=== PATIENT | male | born 1985 | race Caucasian/White ===

== ENCOUNTER 2018-01-22 21:59 | Emergency (ER) | payer SELFPAY ==
[2018-01-22 22:00] VITALS: BP 135/83; PULSE 97; RESP 18; TEMP 35.8; O2SAT 96; BMI 28.5
--- NOTE | 2018-01-22 22:24 | ED.VISSUMM ---
- ER Visit Summary Date of Service: 01/22/18 Chief Complaint: Right ear pain with bloody drainage History of Present Illness: The patient is a 32 M who presents with acute right ear pain with bloody drainage that started yesterday. He denies headache. He does report mild nasal congestion. Denies sore throat. He denies cough. He does report vertigo. He also reports decreased hearing on the right. He denies any other symptoms please read written note Physical Examination: Vital signs remarkable blood pressure 135/83. Pupils equal round reactive. Extra muscles are intact. Sclerae anicteric and conjunctivae is noninjected. There is no amount of cerumen left auditory canal. The portion of the TM that was seen is normal. The right TM is perforated with bloody purulent drainage noted in the external auditory canal. There is no discomfort portion of the tragus or pulling on the auricle. There is no preauricular lymphadenopathy. Neck is supple. Heart is regular without murmur, gallop or rub. S1 and S2 are normal. Lungs are clear to auscultation with good movement of air bilaterally. Test Results: None are indicated Emergency Department Course and Treatment: Patient was treated with azithromycin since he has significant allergy to amoxicillin. Treatment Plan: Prescription for azithromycin, appropriate home-going instructions. He was told to keep water out of his ear. Suggestion was made to apply Vaseline to cottonball and insert an ear prior to showering. Disposition: Discharged to home Impression: Acute right ear pain secondary to otitis media with perforation This note was generated with [employer] dictation software. It may contain incorrect words, spelling, and punctuation that were not noted in review of the chart prior to signing ED Disposition - Plan for ED Patient: Disposition: Home or Assisted Living Chief Complaint: Ear Problem Instructions: ED Rupture Eardrum Infec Prescriptions: Azithromycin [Zithromax] 500 mg PO DAILY #5 tab Referrals: Nichole Yi MD [Primary Care Provider] - 3-5 Days if not improving
[2018-01-22] MEDS: Azithromycin 250 MG Tablet 500 MG PO (22:46)
== END 2018-01-22 22:55 | disposition home or self-care (01) ==
PROVIDERS: Emergency Provider Emergency Medicine; Family Provider Internal Medicine; PCP Internal Medicine
DX: H66.91 Otitis media, unspecified, right ear (principal); H72.91 Unspecified perforation of tympanic membrane, right ear; H92.01 Otalgia, right ear
CPT/HCPCS: 99283

== ENCOUNTER 2018-02-07 21:10 | Emergency (ER) | payer SELFPAY ==
[2018-02-07 21:12] VITALS: BP 114/69; PULSE 69; RESP 17; TEMP 37.1; O2SAT 97; BMI 26.6
== END 2018-02-07 23:50 | disposition left against medical advice (07) ==
LOC: ED 23:09
PROVIDERS: Emergency Provider Emergency Medicine; Family Provider Internal Medicine; PCP Internal Medicine
DX: R51 Headache (principal)

== ENCOUNTER 2018-02-26 13:35 | Emergency (ER) | payer SELFPAY ==
[2018-02-26 13:35] VITALS: BP 122/83; PULSE 84; RESP 18; TEMP 36.7; O2SAT 98; BMI 26.6
[2018-02-26 14:10] VITALS: BP 120/70; PULSE 80; RESP 14; O2SAT 99
[2018-02-26] MEDS: Carbamide Peroxide 15 ML Bottle 5 DRP OTIC (14:12)
--- NOTE | 2018-02-26 14:59 | ED.RN ---
Called into room to help with ear irrigation. Mixed sterile normal saline with hydrogen peroxide 50/50 and irrigated both ears. Small amount of cerumen from each ear. Reapplied debrox and will return in approx 20-30 min. PT tolerated the procedure well, c/o dizziness which pt was educated.
--- NOTE | 2018-02-26 16:28 | ED.VISSUMM ---
- ER Visit Summary Date of Service: 02/26/18 Chief Complaint: The patient is a 32 M bilateral ear pain and unable to hear right side History of Present Illness: Presents with inability to hear on the right side. He combines of bilateral ear pain. He states he used a Q-tip without results. He has no other complaints. Physical Examination: Vital signs unremarkable. Patient has bilateral cerumen impaction. There is no discomfort with pulling on the auricle pushing on the tragus. There is no erythema. There is no tenderness of the mastoid. There is no preauricular lymphadenopathy. The remainder of the HEENT exam is unremarkable. Test Results: None Emergency Department Course and Treatment: Debrox both ears and irrigation by nurse Treatment Plan: None Disposition: Discharged to home Impression: Bilateral cerumen impaction with decreased hearing This note was generated with [employer] dictation software. It may contain incorrect words, spelling, and punctuation that were not noted in review of the chart prior to signing ED Disposition - Plan for ED Patient: Disposition: Home or Assisted Living Chief Complaint: Ear Problem Instructions: ED Cerumen Impaction Treated Referrals: Nichole Yi MD [Primary Care Provider] - As Needed
--- NOTE | 2018-02-26 16:31 | ED.DCSUM_ITS ---
- ER Visit Summary Date of Service: 02/26/18 Chief Complaint: The patient is a 32 M bilateral ear pain and unable to hear right side History of Present Illness: Presents with inability to hear on the right side. He combines of bilateral ear pain. He states he used a Q-tip without results. He has no other complaints. Physical Examination: Vital signs unremarkable. Patient has bilateral cerumen impaction. There is no discomfort with pulling on the auricle pushing on the tragus. There is no erythema. There is no tenderness of the mastoid. There is no preauricular lymphadenopathy. The remainder of the HEENT exam is unremarkable. Test Results: None Emergency Department Course and Treatment: Debrox both ears and irrigation by nurse Treatment Plan: None Disposition: Discharged to home Impression: Bilateral cerumen impaction with decreased hearing This note was generated with [employer] dictation software. It may contain incorrect words, spelling, and punctuation that were not noted in review of the chart prior to signing ED Disposition - Plan for ED Patient: Disposition: Home or Assisted Living Chief Complaint: Ear Problem Instructions: ED Cerumen Impaction Treated Referrals: Nichole Yi MD [Primary Care Provider] - As Needed
[2018-02-26 16:39] VITALS: BP 118/94; PULSE 65; RESP 14; O2SAT 98
== END 2018-02-26 16:40 | disposition home or self-care (01) ==
PROVIDERS: Emergency Provider Emergency Medicine; Family Provider Internal Medicine; PCP Internal Medicine
DX: H61.23 Impacted cerumen, bilateral (principal); Z72.0 Tobacco use
CPT/HCPCS: 99282

== ENCOUNTER 2018-06-08 21:36 | Emergency (ER) | payer SELFPAY ==
[2018-06-08 21:37] VITALS: BP 136/83; PULSE 63; RESP 16; TEMP 36.8; O2SAT 99; BMI 24.8
--- NOTE | 2018-06-08 22:49 | ED.VISSUMM ---
- ER Visit Summary Date of Service: 06/08/18 Chief Complaint: Right wrist pain History of Present Illness: The patient is a 33 M [id number] presenting with 1 week of right wrist pain. No trauma. It is worse with lifting things. No swelling or warmth. No weakness. No neck pain. Physical Examination: Minimal tenderness on the medial aspect of his right wrist. No erythema or warmth. No ecchymosis. Normal distal neurovascular examination. Test Results: Right wrist x-ray negative for acute process Emergency Department Course and Treatment: Wrist x-rays negative. Treatment Plan: He was placed in an Jacob bandage and treated with naproxen. He was referred for follow-up if not improving. Disposition: Home stable condition Impression: Initial encounter right wrist sprain This note was generated with [employer] dictation software. It may contain incorrect words, spelling, and punctuation that were not noted in review of the chart prior to signing ED Disposition - Plan for ED Patient: Chief Complaint: Upper Extremity Injury Instructions: ED Sprain Wrist Prescriptions: Naproxen [Naprosyn] 500 mg PO BID PRN #20 tablet Referrals: Nichole Yi MD [Primary Care Provider] - 5-7 Days (if not better )
[2018-06-08] MEDS: Naproxen 500 MG Tablet PO (22:55)
[2018-06-08 23:04] VITALS: BP 128/60; PULSE 78; RESP 18; O2SAT 98
== END 2018-06-08 23:04 | disposition home or self-care (01) ==
PROVIDERS: Emergency Provider Emergency Medicine; Family Provider Internal Medicine; PCP Internal Medicine
DX: S63.501A Unspecified sprain of right wrist, initial encounter (principal); Z72.0 Tobacco use; X58.XXXA Exposure to other specified factors, initial encounter; Y93.9 Activity, unspecified; Y92.9 Unspecified place or not applicable; Y99.9 Unspecified external cause status
CPT/HCPCS: 73110; 99283

== ENCOUNTER 2018-07-13 19:51 | Emergency (ER) | payer SELFPAY ==
[2018-07-13 19:51] VITALS: BP 145/74; PULSE 73; RESP 18; TEMP 36.6; O2SAT 97; BMI 27.6
== END 2018-07-13 21:04 | disposition left against medical advice (07) ==
LOC: ED 21:44
PROVIDERS: Emergency Provider Emergency Medicine; Family Provider Internal Medicine; PCP Internal Medicine
DX: R05 Cough (principal)

== ENCOUNTER 2018-12-18 16:23 | Emergency (ER) | payer SELFPAY ==
[2018-12-18 16:24] VITALS: BP 125/75; PULSE 73; RESP 18; TEMP 37; O2SAT 97; BMI 29.0
--- NOTE | 2018-12-18 17:27 | ED.DCSUM_ITS ---
- ER Visit Summary Date of Service: 12/18/18 Chief Complaint: Dental pain times 1 month History of Present Illness: The patient is a 33 M who presents with dental pain that he localizes from the angle the mandible to the preauricular area. He states he has a bad tooth or 2. He has not seen a dentist. He states initially Advil/Aleve alleviated the pain. The pain is not alleviated with Aleve or Advil recently. He denies fever, chills night sweats. He denies a traumatic fever, murmur, SBE, IV drug use or being immune suppressed. He denies facial redness or swelling. He denies difficulty breathing, swallowing or change in voice. He denies difficulty opening or closing his mouth. Physical Examination: Vital signs noted unremarkable. Patient had to be awakened to examine. There is no evidence of facial cellulitis. There is no trismus. There is dental decay with exposure of the pulp right lower second molar and left upper third molar. There is no periodontal swelling. There is no evidence of Roman's angina. Trachea is midline. There is no stridor. There is no dysphonia. There is no drooling. Insert cardia pulmonary exam Test Results: None were obtained Emergency Department Course and Treatment: Clindamycin and NSAID. Patient reports allergy with hives to penicillin codeine Treatment Plan: Prescription clindamycin and referral to [facility] Disposition: Discharged home with outpatient dental follow-up Impression: 1. Dental carry with exposure of pulp right lower molar probable periapical abscess 2. Dental carry right upper molar This note was generated with [employer] dictation software. It may contain incorrect words, spelling, and punctuation that were not noted in review of the chart prior to signing ED Disposition - Plan for ED Patient: Disposition: Home or Assisted Living Instructions: ED Cavity Dental, Dental Abscess Prescriptions: Clindamycin HCl [Cleocin] 300 mg PO Q6H #28 cap Referrals: Nichole Yi MD [Primary Care Provider] - As soon as possible Additional Instructions: Based on your allergies you were treated with clindamycin and recommend taking either ibuprofen or Aleve for your pain. Also recommend that you contact the dental clinic at [facility]
[2018-12-18] MEDS: Naproxen 250 MG Tablet 500 MG PO (17:43)
[2018-12-18] MEDS: Clindamycin HCl 150 MG Capsule 300 MG PO (17:44)
== END 2018-12-18 17:45 | disposition home or self-care (01) ==
PROVIDERS: Emergency Provider Emergency Medicine; Family Provider Internal Medicine; PCP Internal Medicine
DX: K02.9 Dental caries, unspecified (principal); K05.10 Chronic gingivitis, plaque induced; K04.7 Periapical abscess without sinus; K08.89 Other specified disorders of teeth and supporting structures; Z72.0 Tobacco use
CPT/HCPCS: 99283

== ENCOUNTER 2019-03-12 18:12 | Emergency (ER) | payer SELFPAY ==
[2019-03-12 18:13] VITALS: BP 122/74; PULSE 86; RESP 19; TEMP 36.6; O2SAT 97; BMI 26.6
--- NOTE | 2019-03-12 18:36 | ED.RN ---
PT REPORTS BEING BIT BY CAT ON RIGHT INDEX FINGER TODAY. SMALL PUNCTURE WOUND TO RIGHT INDEX FINGER TIP, AND SWELLING INTO RIGHT THIRD FINGER WELL. PT REPORTS TENDERNESS THROUGHOUT RIGHT HAND.
--- NOTE | 2019-03-12 19:02 | RAD_ITS ---
STUDY: X-RAY - RIGHT HAND REASON FOR EXAM: Male, 33 years old. Pain TECHNIQUE: 3 view(s) of the hand. COMPARISON: None. FINDINGS: There is no evidence of fracture or dislocation. There are no significant degenerative changes. There are no radiodense foreign bodies. RAD/Hand Min 3 Views IMPRESSION: No fracture or dislocation. Electronically Signed: Pop Michel, at 19:19 EDT Tel , Service support ,
--- NOTE | 2019-03-12 19:40 | ED.VISSUMM ---
- ER Visit Summary Date of Service: 03/12/19 Chief Complaint: Right hand pain History of Present Illness: The patient is a 33 M who presents with right hand pain that began today. Patient states he woke up with pain over his right third MCP joint area. Patient states the pain is worse with movement and with squeezing things. Patient does admit to some mild tingling in the tip of his right middle finger. Patient denies any weakness. Patient states the pain improves with rest. Patient denies any trauma or injury. Physical Examination: Vital signs are stable. Patient is afebrile. Patient is in no acute distress. Musculoskeletal exam reveals tenderness with mild edema over the right third MCP joint area. There is no bony crepitance or step-off. Range of motion was limited in all motions of the right third MCP joint secondary to pain. Strength is 5/5 in flexion and extension of the MP, PIP, and DIP joints of the right middle finger. Sensation was intact to light touch in all digits. Capillary refill is less than 2 seconds in all digits. Test Results: X-rays of the right hand were obtained. There is no acute fracture. Emergency Department Course and Treatment: Patient was instructed to ice and elevate the right hand. Patient was instructed to take [id number] ibuprofen as needed for pain. Patient was instructed to follow-up with his primary care physician in 7 to 10 days. Patient understood and was agreeable with the plan. All questions were answered. Disposition: Discharge home Impression: Right hand pain This note was generated with [employer] dictation software. It may contain incorrect words, spelling, and punctuation that were not noted in review of the chart prior to signing ED Disposition - Plan for ED Patient: Disposition: Home or Assisted Living Diagnosis: Right hand pain Instructions: ED Contusion Upper Ext Referrals: Nichole Yi MD [Primary Care Provider] - 5-7 Days
[2019-03-12 19:54] VITALS: BP 132/79; PULSE 56; RESP 18; O2SAT 98
== END 2019-03-12 19:55 | disposition home or self-care (01) ==
PROVIDERS: Emergency Provider Emergency Medicine; Family Provider Internal Medicine; PCP Internal Medicine
DX: M79.641 Pain in right hand (principal); S60.221A Contusion of right hand, initial encounter; Z72.0 Tobacco use; X58.XXXA Exposure to other specified factors, initial encounter; Y93.9 Activity, unspecified; Y92.89 Other specified places as the place of occurrence of the external cause; Y99.8 Other external cause status
CPT/HCPCS: 73130; 99282

== ENCOUNTER 2019-07-22 18:45 | Emergency (ER) | payer SELFPAY ==
[2019-07-22 18:45] VITALS: BP 126/80; PULSE 84; RESP 16; TEMP 36.7; O2SAT 95; BMI 28.4
--- NOTE | 2019-07-22 18:49 | ED.RN ---
CALLED FOR EKG PER RN REQUEST, PULLED OLD EKGS FOR
--- NOTE | 2019-07-22 19:00 | EKG12_ITS ---
Test Reason : CP Blood Pressure : / mmHG Vent. Rate : 080 BPM Atrial Rate : 080 BPM P-R Int : 132 ms QRS Dur : 088 ms QT Int : 362 ms P-R-T Axes : 042 063 048 degrees QTc Int : 417 ms Normal sinus rhythm Normal ECG Confirmed by JONATHAN COONEY ([id number]), supervising editor trailer LAURA LUNA ([id number]) on 07/28/2019 12:15:40 PM Referred By: Confirmed By:JONATHAN COONEY
--- NOTE | 2019-07-22 19:05 | RAD_ITS ---
STUDY: X-RAY CHEST REASON FOR EXAM: Male, 34 years old. Chest pain. TECHNIQUE: Single AP portable view of the chest. COMPARISON: January 18, 2016. FINDINGS: There is a mildly decreased inspiratory effort when compared to prior study. There is no new mass or infiltrate. There is no demonstrated pleural abnormality. Normal size heart. Normal mediastinum and darcy. Normal visualized pulmonary arteries. Normal visualized aortic arch and descending thoracic aorta. No visualized osseous changes. There is no demonstrated abnormality of the visualized soft tissue structures of the upper abdomen. RAD/Chest 1 View (Portable) IMPRESSION: No acute cardiopulmonary disease or major interval change. Electronically Signed: Maxwell Jules DO at 19:21 EDT Tel [phone], Service support ,
[2019-07-22 19:07] VITALS: O2SAT 98
[2019-07-22 19:07] LABS: Absolute Lymphocyte Count 3.02 X10^3/uL (0.83-4.51); Absolute Neutrophil Count 4.6 X10^3/uL (2.0-7.7); Basophil# 0.02 X10^3/uL; Basophil% 0.2 % (0-1); Eosinophils% 1.2 % (0-5); Hematocrit 47.1 % (40-54); Hemoglobin 16.3 g/dL (13.0-16.5); Lymphocyte # 3.02 X10^3/ul (4.0); Lymphocyte % 35.6 % (19-41); Mean Corp Hgb Conc 34.6 g/dL (32-36); Mean Corpuscular Hgb 30.8 pg (27.0-32.0); Monocyte# 0.67 X10^3/uL; Monocyte% 7.9 % (0-10); NRBC Flagged by Analyzer 0 % (0-5); Neutrophil # 4.64 X10^3/uL (2.7-7.7); Neutrophil % 54.7 % (47-70); Platelet Count 271 K/mm3 (150-450); RBC Distribution Width CV 12.6 % (11.6-14.6); RBC Distribution Width SD 41.2 fl (35.1-43.9); Red Blood Count 5.29 M/mm3 (4.6-6.2); White Blood Count 8.5 K/mm3 (4.4-11.0)
--- NOTE | 2019-07-22 19:09 | ED.DCSUM_ITS ---
History of Present Illness Chief Complaint: Chest Pain Detail of Chief Complaint: Chest and abdominal pain, vomiting Informant: Patient Onset: Today Context: Gradual Onset Current Severity: Mild Maximum Severity: Moderate Narrative: Patient presents with chest and upper abdominal pain, nausea, and vomiting. He states he was at work today. He for the past couple hours has had intermittent sharp chest pain. He states he tried to go outside to get some fresh air. His upper abdomen became painful and he became nauseated. He vomited several times. He did walk here from work. He denies known history of cardiac disease in his family. He has had no personal history of cardiac problems. Past Medical History - Allergies and Home Meds Allergies/Adverse Reactions: Allergies codeine Allergy (Verified 07/22/19 18:51) Rash Penicillins [PCN] Allergy (Verified 07/22/19 18:51) Rash Primary Care Physician: Nichole Yi MD [Primary Care Provider] - Prior records reviewed: Yes Past Medical History: - - Reviewed Smoking Status: Current every day smoker Review of Systems General: Denies: Chills, Fever Eyes: Denies: Visual changes - bilaterally ENT: Denies: Bilateral ear pain Cardiovascular: Reports: Chest pain. Denies: Palpitations, Heart racing Respiratory: Denies: Dyspnea, Cough, Sputum Gastrointestinal: Reports: Abdominal pain, Nausea, Vomiting. Denies: Diarrhea Genitourinary: Denies: Dysuria Musculoskeletal: Denies: Swelling, Extremity Pain Skin: Denies: Rash Neurological: Denies: Headache Physical Exam Vital Signs/Narrative: Vital Signs Temp Pulse Resp BP Pulse Ox 07/22/19 19:07 98 07/22/19 18:45 98.1 F 84 16 126/80 H 95 Inital Vital Signs reviewed: Yes General: Well nourished, Well developed Head: Normocephalic Eyes: Perrl, EOMI ENT: Moist mucous membranes Neck: Supple Cardiovascular: Regular rate, Regular rhythm Respiratory: No distress, CTA bilaterally, Chest nontender Abdomen: Soft, Tender - Epigastric tenderness., Hypoactive bowel sounds. Negative for: Guarding, Rebound tenderness Back: Nontender Extremities: Nontender Skin: Normal color, No rash Neurological: Alert, Oriented x3 Psychological: Normal affect Diagnostic/Tx/Re-eval Impressions Chest X-Ray 07/22/19 19:05 IMPRESSION: No acute cardiopulmonary disease or major interval change. Electronically Signed: Maxwell Jules DO at 19:21 EDT Tel [phone], Service support , 07/22/19 19:05 Chest 1 View (Portable) [RAD] Stat Laboratory Results 07/22/19 07/22/19 07/22/19 18:55 18:55 18:55 WBC 8.5 RBC 5.29 Hgb 16.3 Hct 47.1 MCV 89.0 MCH 30.8 MCHC 34.6 RDW Std Deviation 41.2 RDW Coeff of Jens 12.6 Plt Count 271 MPV 11.0 Immature Gran % (Auto) 0.400 Neut % (Auto) 54.7 Lymph % (Auto) 35.6 [place] % (Auto) 7.9 Eos % (Auto) 1.2 Baso % (Auto) 0.2 Absolute Neuts (auto) 4.6 Absolute Lymphs (auto) 3.02 Nucleated RBC % 0 Sodium 141 Potassium 4.0 Chloride 109 H Carbon Dioxide 27.0 Anion Gap 5 BUN 8 Creatinine 0.99 Estim Creat Clear Calc 100.15 Est GFR (MDRD) Af Amer 113 Est GFR (MDRD) Non-Af 93 BUN/Creatinine Ratio 8.1 L Glucose 106 Calcium 8.9 Total Bilirubin 0.90 Direct Bilirubin 0.19 AST 23 ALT 62 H Alkaline Phosphatase 87 Troponin I < 0.015 Total Protein 7.5 Albumin 4.0 Globulin 3.5 Lipase 129 - EKG Initial EKG Interpretation: Sinus Rhythm - Sinus at 80 with no acute ischemia. - Medical Decision Making Patient was given morphine and Zofran for pain. On repeat evaluation he reports some improvement in his symptoms. He is able to tolerate p.o. fluids. He will be discharged with Zofran and Bentyl. ED Disposition - Plan for ED Patient: Disposition: Home or Assisted Living Diagnosis: Atypical chest pain, Vomiting Instructions: VIRAL SYNDROME (Adult) Prescriptions: Dicyclomine HCl [Bentyl] 20 mg PO TIDAC #20 cap Prescription Printed Ondansetron [Zofran Odt] 4 mg PO Q8H PRN PRN #10 tab PRN Reason: Nausea Prescription Printed Referrals: Nichole Yi MD [Primary Care Provider] -
[2019-07-22 19:20] LABS: Anion Gap 5 (5-15); BUN 8 mg/dL (7-18); BUN/Creat Ratio 8.1 RATIO (10-20); Calcium,Total 8.9 mg/dL (8.5-10.1); Chloride 109 mmol/L (98-107); Creatinine, Serum 0.99 mg/dL (0.70-1.30); EST Glomerular Filtration Rate 93 mL/min (>60); Est Glom Filt Rate - Afr Amer 113 mL/min (>60); Estimated Creatinine Clearance 100.15 ml/min; Glucose 106 mg/dL (74-106); Sodium Level 141 mmol/L (136-145)
[2019-07-22] MEDS: Morphine 4 MG/ML Syringe IV (19:20)
[2019-07-22] MEDS: Ondansetron 4 MG/2 ML Vial IV (19:20)
[2019-07-22] MEDS: 0.9% Normal Saline 1,000 ML 150 ML IV (19:20)
[2019-07-22 19:39] LABS: AST(SGOT) 23 U/L (15-37); Alanine Aminotransfer ALT/SGPT 62 U/L (16-61); Alkaline Phosphatase 87 U/L (45-117); Bilirubin, Direct 0.19 mg/dL (0.00-0.30); Globulin 3.5 g/dL (2.2-4.2); Lipase 129 U/L (73-393); Protein, Total 7.5 g/dL (6.4-8.2)
[2019-07-22 19:47] VITALS: BP 119/90; PULSE 65; RESP 19; O2SAT 96
[2019-07-22 20:03] VITALS: BP 123/88; PULSE 58; RESP 12; O2SAT 98
[2019-07-22 20:53] VITALS: BP 120/80; PULSE 78; RESP 16; O2SAT 98
== END 2019-07-22 20:53 | disposition home or self-care (01) ==
PROVIDERS: Emergency Provider Emergency Medicine; Family Provider Internal Medicine; PCP Internal Medicine
DX: R07.89 Other chest pain (principal); R11.2 Nausea with vomiting, unspecified; F17.200 Nicotine dependence, unspecified, uncomplicated
CPT/HCPCS: 71045; 80048; 80076; 83690; 84484; 85025; 93005; 96361; 96374; 96375; 99285; J7030; A4216; J2405

== ENCOUNTER 2019-09-12 13:39 | Emergency (ER) | payer SELFPAY ==
[2019-09-12 13:39] VITALS: BP 130/79; PULSE 93; RESP 17; TEMP 36.8; O2SAT 98; BMI 28.5
--- NOTE | 2019-09-12 14:21 | ED.VIS.URI ---
History of Present Illness Chief Complaint: Cough Narrative: Patient presenting due to respiratory illness. Patient reports that he has been feeling sick for approximately last week. Associated with sinus congestion cough and a productive cough with mucousy sputum. Patient states that he has not had any fevers. He has had generalized malaise. Denies any body aches. No sore throat. No nausea vomiting or diarrhea associated with this. Patient is otherwise healthy. He is a smoker. He denies any sick contacts or recent antibiotic use. No exacerbating relieving factors to the patient's symptoms. He has been trying to drink herbal tea and this has not alleviated his symptoms. Past Medical History - Allergies and Home Meds Allergies/Adverse Reactions: Allergies codeine Allergy (Verified 09/12/19 13:42) Rash Penicillins [PCN] Allergy (Verified 09/12/19 13:42) Rash Primary Care Physician: Nichole Yi MD [Primary Care Provider] - Past Medical History: None Smoking Status: Current every day smoker Review of Systems All systems negative except as indicated General: Reports: Malaise. Denies: Fever Eyes: Denies: Visual changes - bilaterally, Diplopia ENT: Reports: Rhinorrhea Cardiovascular: Denies: Chest pain, Palpitations Respiratory: Reports: Cough, Sputum Gastrointestinal: Denies: Abdominal pain, Nausea, Vomiting, Diarrhea, Melena, Hematochezia Genitourinary: Denies: Dysuria, Hematuria, Frequency Musculoskeletal: Denies: Back pain, Extremity Pain Skin: Denies: Rash, Wounds Neurological: Denies: Headache, Weakness, Numbness Psych: Denies: Depression Endocrine: Denies: Polyuria Hematologic: Denies: Easy bruising, Easy bleeding Allergy: Denies: Swelling of the mouth Physical Exam Vital Signs/Narrative: Vital Signs Temp Pulse Resp BP Pulse Ox 09/12/19 13:39 98.3 F 93 17 130/79 H 98 Inital Vital Signs reviewed: Yes General: Well nourished, Well developed Head: Frontal Tenderness - Right sided Eyes: Perrl, EOMI Ears: Normal external canal, TM's clear Nose: Normal Inspection, No Rhinorrhea Mouth/Throat: Posterior Oropharyngeal Erythema - Minimal amount of drainage Neck: Anterior Lymphadenopathy Cardiovascular: Regular rate, Regular rhythm, No murmurs Respiratory: No distress, CTA bilaterally, Chest nontender Abdomen: Soft, Nontender, Nondistended, Normal bowel sounds Back: Nontender, Normal Inspection Extremities: Nontender, No edema Skin: Normal color, No rash Neurological: Alert, Oriented x3, Cranial nerves II-XII grossly intact, Normal Strength, Normal Sensation Psychological: Normal affect Diagnostic/Tx/Re-eval - Medical Decision Making Patient presented with symptomatology consistent with sinusitis. He said symptoms for about a week, so I feel that antibiotics are indicated at this point. Patient will be started on a course of doxycycline. He was recommended nasal saline rinses, and follow-up with primary care. Disposition: Home ED Disposition - Plan for ED Patient: Disposition: Home or Assisted Living Diagnosis: Sinusitis Instructions: Acute Sinusitis Prescriptions: Doxycycline 100 mg PO BID #20 cap Prescription Printed Referrals: Nichole Yi MD [Primary Care Provider] - 10-14 Days if not better
[2019-09-12] MEDS: Doxycycline 100 MG CAPSULE PO (14:30)
[2019-09-12 14:32] VITALS: PULSE 87; RESP 16; O2SAT 97
== END 2019-09-12 14:40 | disposition home or self-care (01) ==
PROVIDERS: Emergency Provider Emergency Medicine; Family Provider Internal Medicine; PCP Internal Medicine
DX: J01.90 Acute sinusitis, unspecified (principal); F17.210 Nicotine dependence, cigarettes, uncomplicated
CPT/HCPCS: 99283

== ENCOUNTER 2020-04-29 04:57 | Emergency (ER) | payer SELFPAY ==
[2020-04-29 04:58] VITALS: BP 139/111; PULSE 73; RESP 16; TEMP 36.8; O2SAT 97; BMI 29.4
--- NOTE | 2020-04-29 05:00 | RAD_ITS ---
STUDY: X-RAY CHEST REASON FOR EXAM: Male, 35 years old. Chest pain for 5 days. TECHNIQUE: PA and lateral chest. COMPARISON: July 22, 2019. FINDINGS: The lungs are clear and expanded. There is no demonstrated pleural abnormality. Normal size heart. Normal mediastinum and darcy. Normal visualized pulmonary arteries. Normal visualized aortic arch and descending thoracic aorta. Normal visualized thoracic spine. Normal visualized ribs, clavicles, and shoulders. There is no demonstrated abnormality of the visualized soft tissue structures of the upper abdomen. RAD/Chest PA and Lateral IMPRESSION: Normal x-ray examination of the chest. Electronically Signed: Kenneth Rojo MD at 6:04 EDT , Service support ,
--- NOTE | 2020-04-29 05:00 | EKG12_ITS ---
Test Reason : CHEST PAIN Blood Pressure : / mmHG Vent. Rate : 068 BPM Atrial Rate : 068 BPM P-R Int : 140 ms QRS Dur : 090 ms QT Int : 386 ms P-R-T Axes : 035 052 053 degrees QTc Int : 410 ms Normal sinus rhythm Normal ECG Confirmed by DIANNA SOSA, LUCIAN ([id number]), video effects editor ESTELA JACKSON ([id number]) on 05/03/2020 8:08:11 AM Referred By: KARY Confirmed By:LUCIAN BUSTAMANTE MD
[2020-04-29] MEDS: Ketorolac 30 MG/ML Syringe IV (05:04)
--- NOTE | 2020-04-29 05:10 | ED.VISSUMM ---
- ER Visit Summary Date of Service: 04/29/20 Chief Complaint: Chest pain History of Present Illness: The patient is a 35 M who presents with chest pain. Is been ongoing for 5 days continuously. Is a sharp pain in the sternal area. Does not radiate. Nothing makes it better or worse. He denies nausea, vomiting, diaphoresis or dyspnea. He denies cough. No fevers. No exposure to anybody with coronavirus. He took Tums thinking it was heartburn but he had no relief from this. He is a smoker but denies any other cardiac risk factors. He has no PE or DVT risk factors. Physical Examination: Vital signs are reviewed. HEENT exam unremarkable. Heart is regular rate and rhythm without murmurs. Lungs are clear to auscultation bilaterally. His chest is tender in the lower sternal area. Abdomen soft nontender. Extremities have no edema. His peripheral pulses are equal. GCS 15. He has equal strength and sensation bilaterally. Test Results: EKG is sinus rhythm with rate of 68. No ST changes. Chest x-ray unremarkable. Troponin normal Emergency Department Course and Treatment: Patient was given Toradol IV. I feel that this pain is likely musculoskeletal. His only risk factor is smoking. I feel he can be discharged with naproxen for pain control. I will also give him Tylenol here. He will follow-up with his PCP. Treatment Plan: [] Disposition: Discharge Impression: Musculoskeletal chest pain This note was generated with [employer] dictation software. It may contain incorrect words, spelling, and punctuation that were not noted in review of the chart prior to signing ED Disposition - Plan for ED Patient: Disposition: Home or Assisted Living Instructions: ED CHEST PAIN [facility] Prescriptions: Naproxen [Naprosyn] 500 mg PO BID PRN #20 tab Transmission Status: Pending to [facility] #30 Referrals: Nichole Yi MD [Primary Care Provider] -
[2020-04-29] MEDS: Acetaminophen 500 MG Tablet 1000 MG PO (06:11)
[2020-04-29 06:14] VITALS: BP 158/90; PULSE 58; RESP 18; O2SAT 98
== END 2020-04-29 06:14 | disposition home or self-care (01) ==
PROVIDERS: Emergency Provider Emergency Medicine; PCP Internal Medicine
DX: R07.89 Other chest pain (principal); F17.200 Nicotine dependence, unspecified, uncomplicated
CPT/HCPCS: 71046; 84484; 93005; 96374; 99285; A4216

== ENCOUNTER 2021-01-15 11:33 | Emergency (ER) | payer SELFPAY ==
[2021-01-15 11:34] VITALS: BP 146/92; PULSE 75; RESP 17; TEMP 36; O2SAT 98; BMI 28.0
[2021-01-15] MEDS: Acetaminophen 500 MG Tablet 1000 MG PO (11:48)
--- NOTE | 2021-01-15 11:55 | RAD_ITS ---
STUDY: X-RAY - CERVICAL SPINE REASON FOR EXAM: Male, 35 years old. Injury/Pain TECHNIQUE: 4 view(s) of the cervical spine were obtained. COMPARISON: None FINDINGS: Normal anterior atlantoaxial articulation. Normal odontoid process. There is straightening of the normal cervical lordosis. C7 vertebra is suboptimally visualized. No evidence of acute fracture. Narrowing of C5-C6 disc space. Normal visualized intervertebral neuroforamina. No prevertebral soft tissue swelling. RAD/Cerv Spine 2 or 3 Views IMPRESSION: Straightening of the cervical spine which could be due to muscle spasm. Mild degenerative changes. Electronically Signed: Noah Haynes MD at 12:19 EDT Tel , Service support ,
--- NOTE | 2021-01-15 12:31 | ED.DCSUM_ITS ---
- ER Visit Summary Date of Service: 01/15/21 Chief Complaint: Head injury History of Present Illness: The patient is a [address] Chauhan. He reports that his product emerged from when he had 100 pounds of meat fell on the back of his head. He denies a loss of consciousness. Is not on anticoagulants. He complains of a headache that 6 out of 10 severity. He did not fall. He denies any other injuries. He denies any numbness or weakness. Physical Examination: Vitals: Stable. Afebrile. Head: Moderate tenderness palpation of the left occipital area of his head. There is no hematoma or abrasion. Neck: Mild tenderness to palpation from approximately C5-C7. Full ROM without difficulty. Back: No vertebral tenderness. General: A&O x 3. NAD. Cardiovascular exam: Regular rate and rhythm, no murmur, rub or gallop. Respiratory exam: Chest nontender. No crepitus. Clear to auscultation bilaterally. No wheezes or stridor. Abdominal exam: Soft, nontender, nondistended, normal bowel sounds. No pain in RUQ or LUQ specifically. No peritoneal signs. Extremity: Atraumatic. No pain with range of motion. Test Results: Clinical Impression(s) from Imaging Studies Cervical Spine X-Ray 01/15/21 11:55 IMPRESSION: Straightening of the cervical spine which could be due to muscle spasm. Mild degenerative changes. Electronically Signed: Noah Haynes MD at 12:19 EDT Tel , Service support , Emergency Department Course and Treatment: Patient was treated with Tylenol. He is resting comfortably. Treatment Plan: Patient does not want to do this is Workmen's Comp. He will be discharged with symptomatic care. Use Tylenol and/or ibuprofen for pain. Follow-up his primary care physician 1 week if not improving. Return to the emergency department for any worsening symptoms. Disposition: To home in improved and stable condition. Impression: 1. Closed head injury. 2. Cervical strain. This note was generated with [employer] software. It may contain incorrect words, spelling, and punctuation that were not noted in review of the chart prior to signing ED Disposition - Plan for ED Patient: Instructions: ED Head Injury (Adult) Referrals: Nichole Yi MD [Primary Care Provider] - 1 Week if not improving
[2021-01-15 12:44] VITALS: BP 129/78; PULSE 78; RESP 16; O2SAT 98
== END 2021-01-15 12:46 | disposition home or self-care (01) ==
LOC: ED 11:57
PROVIDERS: Emergency Provider Emergency Medicine; PCP Internal Medicine
DX: S16.1XXA Strain of muscle, fascia and tendon at neck level, initial encounter (principal); S09.90XA Unspecified injury of head, initial encounter; Z72.0 Tobacco use; W20.8XXA Other cause of strike by thrown, projected or falling object, initial encounter; Y93.89 Activity, other specified; Y92.89 Other specified places as the place of occurrence of the external cause; Y99.8 Other external cause status
CPT/HCPCS: 72040; 99282

== ENCOUNTER 2021-01-17 20:28 | Emergency (ER) | payer SELFPAY ==
[2021-01-17 20:29] VITALS: BP 136/84; PULSE 85; RESP 18; TEMP 36.4; O2SAT 98; BMI 28.1
--- NOTE | 2021-01-17 21:38 | ED.VISSUMM ---
- ER Visit Summary Date of Service: 01/17/21 Chief Complaint: Head injury History of Present Illness: The patient is a 35 M states 3 days ago on Sunday was at [facility] when a box of meat fell and hit him in the back of the head x2. He said there about 50 pounds each. He was seen in the ER at that time. Had negative x-rays of his neck. Complaining of discomfort in his posterior scalp. He denies any LOC. He is on no anticoagulants. He denies any weakness to his upper or lower extremities. He denies any severe headache. He denies any nausea or vomiting. Physical Examination: Appearing male vital signs stable afebrile. H EENT exam pupils round reactive light extraocular motions are intact. No facial droop. Poor dentition. TMs normal bilaterally no hemotympanum. He has discomfort to his left posterior scalp but I do not see any laceration or any hematoma or swelling. C-spine nontender. Trachea midline. Normal range of motion to his neck. Lungs clear to auscultation bilaterally. Heart regular rhythm no murmur. Chest wall nontender. Abdomen soft nontender. Back nontender. Spine nontender. Patient is moving all 4 extremities. Neurovascularly intact. Normal range of motion. Normal technical programs manager strength bilaterally. Normal dorsi plantarflexion. Neurologically is awake and alert with no focal motor deficits. He knows day, year, place and present [place]. He is not acting like he has a concussion. CS of 15. Test Results: None. I did review his recent C-spine x-rays they were negative. Emergency Department Course and Treatment: Discussed with patient. He does not meet criteria for CAT scan. He is comfortable being discharged home. Treatment Plan: Motrin for pain. Outpatient follow-up as needed. Disposition: Discharge Impression: Closed head injury alleged Cervical strain This note was generated with [employer] dictation software. It may contain incorrect words, spelling, and punctuation that were not noted in review of the chart prior to signing ED Disposition - Plan for ED Patient: Referrals: Nichole Yi MD [Primary Care Provider] -
--- NOTE | 2021-01-17 21:45 | ED.DEP ---
ED Disposition - Plan for ED Patient: Disposition: Home or Assisted Living Instructions: ED Head Injury (Adult), ED Neck Sprain or Strain Referrals: Nichole Yi MD [Primary Care Provider] - 1 Week if not improving Additional Instructions: Ice to scalp. Tylenol and/or Motrin for pain. Follow-up if not improving.
== END 2021-01-17 21:53 | disposition home or self-care (01) ==
LOC: ED 21:47
PROVIDERS: Emergency Provider Emergency Medicine; PCP Internal Medicine
DX: S16.1XXA Strain of muscle, fascia and tendon at neck level, initial encounter (principal); S09.90XA Unspecified injury of head, initial encounter; Z72.0 Tobacco use; W20.8XXA Other cause of strike by thrown, projected or falling object, initial encounter; Y93.89 Activity, other specified; Y92.89 Other specified places as the place of occurrence of the external cause; Y99.8 Other external cause status
CPT/HCPCS: 99282

== ENCOUNTER 2021-05-15 18:13 | Emergency (ER) | payer SELFPAY ==
[2021-05-15 18:17] VITALS: BP 129/102; PULSE 84; RESP 16; TEMP 36.6; O2SAT 97; BMI 28.7
[2021-05-15 18:19] VITALS: BP 129/102; PULSE 84; RESP 16; TEMP 36.6; O2SAT 97
--- NOTE | 2021-05-15 19:14 | CT_ITS ---
STUDY: CT BRAIN WITHOUT CONTRAST REASON FOR EXAM: Male, 36 years old. pain RADIATION DOSAGE (If Supplied By Facility): CTDIvol = ( 44.99 ) mGy, DLP = ( 863.60 ) mGycm TECHNIQUE: Transaxial CT imaging of the brain was performed without administration of intravenous contrast material. Individualized dose optimization techniques were used for this CT. COMPARISON: 06/22/2017 FINDINGS: Normal soft tissue structures. Normal calvarium. Normal size ventricles and extra-axial spaces for the patient''s age. Normal white matter tracts of the cerebral hemispheres. Normal basal ganglia and thalami. Normal brainstem. Normal cerebellum. There is no intracranial hemorrhage. There are no findings of an acute ischemic infarction. Normal visualized paranasal sinuses. There is bilateral mastoiditis. CT/Brain/Head without Contrast IMPRESSION: Normal unenhanced CT scan of the brain. Electronically Signed: Minh Paredes MD at 20:08 EDT , Service support ,
--- NOTE | 2021-05-15 19:20 | EX.ED.DYSGE1 ---
HPI History of Present Illness Chief Complaint: Other, Pain/Inj Informant: patient Narrative Narrative: Patient's complaining of a sore area on his upper left neck. He states sometimes this radiates in the head and just makes him feel weird. He did have a head injury back in January. He has been having some symptoms ever since then. He has no nausea vomiting fevers or chills. He denies any new or acute injury. No numbness tingling weakness. No trouble breathing. Motion or pressing on it makes it worse. Rest makes it better. PFSH PFSH Home Medications NK 01/15/21 [History Last Taken Unknown] Allergy/AdvReac Type Severity Reaction Status Date / Time codeine Allergy Rash Verified 01/17/21 20:31 Penicillins [PCN] Allergy Rash Verified 01/17/21 20:31 Social History Smoking Status: Current every day smoker tobacco type: cigarettes ROS ROS ED Constitutional Constitutional ED: Denies chills, fever(s) or sweats Eyes Eyes: Denies blurry vision or change in vision ENT ENT ED: Denies ear pain, rhinorrhea or sore throat Cardiovascular Cardiovascular: Denies chest pain Respiratory/Chest Respiratory/Chest: Denies cough or dyspnea Gastrointestinal Gastrointestinal: Denies nausea or vomiting Musculoskeletal Musculoskeletal: Reports neck pain; Denies arthralgias, back pain or myalgias Integumentary Denies abscess, Abrasions or rash Neurologic Neurologic: Reports headache(s); Denies paresthesias or weakness Psychiatric Psychiatric: Denies anxiety or depression Allergic/Immunologic Allergic/Immunologic ED: Denies mouth swelling, tongue swelling or urticaria EXAM Physical Exam Const Vital Signs: 05/15/21 18:17 05/15/21 18:19 Temperature 97.8 F 97.8 F Temperature Source Temporal Temporal Pulse Rate 84 84 Respiratory Rate 16 16 Blood Pressure 129/102 H 129/102 H Blood Pressure Mean 111 111 Pulse Ox 97 97 Oxygen Delivery Method Room Air Room Air Positive well nourished and well developed General Appearance ED: well developed and NAD HEENT Negative for trauma or tenderness Eyes PERRL and EOMs intact bilaterally Neck no lymphadenopathy and supple Neck Narrative: Patient does have some tightness of the muscles of the upper left. I was expecting to see a small abscess but there is none. There is no erythema or warmth. I do not feel any lymphadenopathy. No meningismus. Chest Wall inspection of chest normal Resp normal respiratory effort and clear to auscultation bilaterally Auscultation: Negative for wheezes Cardio regular rate Back/Spine no CVA tenderness Extremity normal to inspection General Extremety ED: Negative for tenderness Neuro oriented x3, CN's II-XII intact bilaterally and no sensory deficits noted Sensorium / Orientation: alert; Negative for lethargic or stuporous Psych mental status grossly normal Skin no rashes or lesions noted MDM MDM MDM Narrative Medical decision making narrative: CT of the head shows no acute process. This was done because he has a lot of symptoms that radiate into his head. I think his symptoms are mostly from spasm. Is been off and on for some time. I will write him for some Naprosyn and Flexeril. He should use warmth on the area. If he develops increasing pain, swelling, redness fevers neurologic symptoms he should return. Radiography Diagnostic Testing: Radiology Impression Brain CT 05/15/21 19:14 IMPRESSION: Normal unenhanced CT scan of the brain. Electronically Signed: Minh Paredes MD at 20:08 EDT , Service support , Discharge Plan Triage Chief Complaint: Other, Pain/Inj ED Provider: Ryley Kan Dx/Rx/DC Orders Clinical Impression: Cervical paraspinal muscle spasm Instructions: ED Neck Spasm, No Trauma Prescriptions: No Action NK RF: 0 Primary Care Provider: Nichole Yi Referrals: Nichole Yi MD [Primary Care Provider] - 10-14 Days if not better Disposition Disposition: Home, Self Care
[2021-05-15 20:55] VITALS: RESP 16
== END 2021-05-15 20:56 | disposition home or self-care (01) ==
PROVIDERS: Emergency Provider Emergency Medicine; PCP Internal Medicine
DX: M62.838 Other muscle spasm (principal); F17.210 Nicotine dependence, cigarettes, uncomplicated
CPT/HCPCS: 70450; 99282